=== PATIENT | male | born 1975 | race Caucasian/White ===

== ENCOUNTER 2019-02-15 04:32 | Emergency (ER) | payer OTHER ==
[2019-02-15] MEDS ORDERED: PRAZ2CAP26 PO (04:39)
[2019-02-15] MEDS ORDERED: LOSA25TA57 PO (04:39)
[2019-02-15] MEDS ORDERED: ATOR20TA22 PO (04:39)
--- NOTE | 2019-02-15 04:48 | ER Report ---
History and Physical Time Seen By MD: 04:48 Hx. of Stated Complaint: PT REPORTS HAVING POSSIBLE SINUS INFECTION. HPI/ROS CHIEF COMPLAINT: Pain in the lower left jaw as well as some sinus symptoms HISTORY OF PRESENT ILLNESS: This is a 43-year-old male. For the last week is been having some pain in the lower right left jaw. He tried in the area near his first molar on the bottom left where he had a crown placed in the past. Similar bit of swelling into the angle of the jaw just below his ear. The same time he was having some runny nose that he thought might be allergies and was trying some antihistamines and decongestants. This has not been helping so he was concerned he might have a sinus infection. The pain in the lower jaw does increase whenever he bites down on anything on that tooth. There is no drainage in the area. Does not appear to have any pain with hot and cold. He does have an appointment coming up with his dentist in a couple of days. Allergies: Coded Allergies: Penicillins (Verified Allergy, Severe, SEIZURE, 02/15/19) Home Meds Active Scripts Clindamycin Hcl (CLINDAMYCIN HCL) 300 Mg Capsule, 300 MG PO Q6H, #28 CAPSULE 0 Refills Prov:ERIK BISHOP MD 02/15/19 Ketorolac Tromethamine (KETOROLAC TROMETHAMINE) 10 Mg Tab, 10 MG PO Q6H PRN for PAIN, #12 TAB 0 Refills Prov:ERIK BISHOP MD 02/15/19 Reported Medications Atorvastatin Calcium (LIPITOR) 20 Mg Tablet, 1 TAB PO QDAY, TAB 02/15/19 Prazosin Hcl (PRAZOSIN HCL) 2 Mg Capsule, 2 MG PO HS, CAPSULE 02/15/19 Losartan Potassium (LOSARTAN POTASSIUM) 25 Mg Tablet, 25 MG PO QDAY 02/15/19 Reviewed Nurses Notes: Yes Hx Substance Use Disorder: No Hx Alcohol Use: No Constitutional Vital Sign - Last 24 Hours 02/15/19 02/15/19 02/15/19 04:35 04:39 05:04 Temp 97.8 Pulse 102 Resp 18 B/P (MAP) 172/115 (134) 172/115 173/122 (139) Pulse Ox 93 O2 Delivery Room Air Physical Exam General Appearance: Alert, no distress. ENT: Mucous membranes are moist. Oral mucosa is normal in appearance. Posterior oropharynx has no erythema or exudates, no posterior drainage. Nasal mucosa is normal. Tympanic membranes and canals are normal. Dental exam: He does have pain with percussion over the left lower first molar, there is no swelling of the gums or abscess noted. Musculoskeletal: Neck is supple non tender There is no adenopathy. Skin: Warm and dry, no rashes. DIFFERENTIAL DIAGNOSIS: After history and physical exam differential diagnosis was considered for pain in the lower jaw which appears to be dental pain. I think this is unrelated to the runny nose which likely is seasonal allergies. Medical Decision Making ED Course/Re-evaluation ED Course We are going to start clindamycin as the patient is allergic to penicillin. We'll also give him Toradol to use for pain. Encouraged him to follow up with the dentist as planned. Decision to Disposition Date: Feb 15, 2019 Decision to Disposition Time: 04:57 Depart Departure Latest Vital Signs Vital Signs Date Time Temp Pulse Resp B/P (MAP) Pulse Ox O2 Delivery O2 Flow Rate FiO2 02/15/19 05:04 173/122 (139) 02/15/19 04:39 97.8 102 18 93 Room Air Impression: Primary Impression: Pain, dental Condition: Improved Disposition: HOME OR SELF-CARE New Scripts Clindamycin Hcl (CLINDAMYCIN HCL) 300 Mg Capsule 300 MG PO Q6H, #28 CAPSULE 0 Refills Prov: ERIK BISHOP MD 02/15/19 Ketorolac Tromethamine (KETOROLAC TROMETHAMINE) 10 Mg Tab 10 MG PO Q6H PRN for PAIN, #12 TAB 0 Refills Prov: ERIK BISHOP MD 02/15/19 Patient Instructions: Dental Abscess (ED) Additional Instructions: Start the antibiotic Clindamycin 300mg four times a day. Take Toradol 10mg, one every 6 hours as needed for pain. Follow-up with your dentist for further evaluation. ERIK BISHOP MD Feb 15, 2019 04:48
[2019-02-15] MEDS ORDERED: KET10 PO (04:59)
[2019-02-15] MEDS ORDERED: CLIN300C99 PO (04:59)
[2019-02-15] MEDS ORDERED: KETOROLAC TROM 10MG TAB PO ONE (05:00)
[2019-02-15] MEDS ORDERED: CLINDAMYCIN 150 MG CAP PO ONE (05:00)
[2019-02-15 05:04] VITALS: BP 173/122
== END 2019-02-15 05:25 | disposition home or self-care (01) ==
LOC: ER 04:53
DX: K08.89 Other specified disorders of teeth and supporting structures (principal)
CPT/HCPCS: 99283